=== PATIENT | male | born 1975 | race Caucasian/White ===

== ENCOUNTER 2018-11-13 17:20 | Inpatient (IN) | payer OTHER ==
[~2018-11-13] VITALS: Ht 177.8 cm; Wt 75.3 kg
== END 2018-12-13 14:22 | disposition home or self-care (01) | DRG 329 ==
LOC: SURH 11-21 07:12 → O/R 11-21 07:12 → SURH 11-21 13:45
PROVIDERS: ADMIT Colon & Rectal Surgery
PROC: 0DJD8ZZ Inspection of Lower Intestinal Tract, Via Natural or Artificial Opening Endoscopic (ICD-10-PCS; 2018-11-21)
PROC: 0DTN4ZZ Resection of Sigmoid Colon, Percutaneous Endoscopic Approach (ICD-10-PCS; principal; 2018-11-21 13:45)
PROC: 02HV33Z Insertion of Infusion Device into Superior Vena Cava, Percutaneous Approach (ICD-10-PCS; 2018-11-25)
PROC: BW21ZZZ Computerized Tomography (CT Scan) of Abdomen and Pelvis (ICD-10-PCS; 2018-11-25)
PROC: 0W9F3ZZ Drainage of Abdominal Wall, Percutaneous Approach (ICD-10-PCS; 2018-11-25)
PROC: 0D1B0Z4 Bypass Ileum to Cutaneous, Open Approach (ICD-10-PCS; 2018-11-29)
PROC: 30233N1 Transfusion of Nonautologous Red Blood Cells into Peripheral Vein, Percutaneous Approach (ICD-10-PCS; 2018-12-03)
PROC: 0W9F3ZZ Drainage of Abdominal Wall, Percutaneous Approach (ICD-10-PCS; 2018-12-09)
DX: K57.32 Diverticulitis of large intestine without perforation or abscess without bleeding (principal); K65.1 Peritoneal abscess; A41.9 Sepsis, unspecified organism; D62 Acute posthemorrhagic anemia; K91.89 Other postprocedural complications and disorders of digestive system; K56.7 Ileus, unspecified; K66.0 Peritoneal adhesions (postprocedural) (postinfection); I10 Essential (primary) hypertension; R50.82 Postprocedural fever; D72.828 Other elevated white blood cell count; A08.8 Other specified intestinal infections; B95.2 Enterococcus as the cause of diseases classified elsewhere; B96.29 Other Escherichia coli [E. coli] as the cause of diseases classified elsewhere

== ENCOUNTER → 2018-12-21 | Emergency (ER) | payer OTHER ==
[~2018-12-21] VITALS: Ht 177.8 cm; Wt 64.9 kg
== END | disposition home or self-care (01) ==
LOC: ER 13:41
DX: R10.12 Left upper quadrant pain (principal); Z93.2 Ileostomy status

== ENCOUNTER 2019-02-08 10:30 | Outpatient (CLI) | payer OTHER | END 2019-02-08 17:00 | disposition home or self-care (01) | LOC: RAD 10:30 | DX: K57.20 Diverticulitis of large intestine with perforation and abscess without bleeding (principal) ==

== ENCOUNTER 2019-02-15 07:30 | Inpatient (IN) | payer OTHER ==
[~2019-02-15] VITALS: Ht 177.8 cm; Wt 78.5 kg
[2019-02-15] MEDS ORDERED: LOSARTAN POTASS50 MG PO (11:49)
== END 2019-02-23 17:48 | disposition home or self-care (01) | DRG 329 ==
LOC: EDSTATUS 07:30 → ADM 07:30 → SURH 02-21 06:51 → O/R 02-21 06:51 → SURH 02-21 13:32
PROVIDERS: ADMIT Colon & Rectal Surgery
PROC: 0DQB4ZZ Repair Ileum, Percutaneous Endoscopic Approach (ICD-10-PCS; principal; 2019-02-21 10:00)
DX: Z43.2 Encounter for attention to ileostomy (principal); A41.9 Sepsis, unspecified organism; K57.33 Diverticulitis of large intestine without perforation or abscess with bleeding; R50.82 Postprocedural fever; I10 Essential (primary) hypertension

== ENCOUNTER 2019-11-23 06:25 | Day surgery (SDC) | payer OTHER ==
[~2019-11-23 06:25] MED LIST: LOSARTAN POTASS50 MG PO
== END 2019-11-23 13:30 | disposition home or self-care (01) ==
LOC: AMB-ENDOS 06:25
DX: K62.89 Other specified diseases of anus and rectum (principal); K64.1 Second degree hemorrhoids